=== PATIENT | female | born 1980 | race Two or more races ===

== ENCOUNTER 2016-06-11 08:57 | Day surgery (SDC) | payer MEDICAID ==
[2016-06-11] MEDS ORDERED: LR 1,000 ML IV ONE (10:54)
[2016-06-11] MEDS ORDERED: MIDAZOLAM 2 MG/2 ML VIAL ONE (11:40)
[2016-06-11] MEDS ORDERED: fentaNYL 100 MCG/2 ML INJ ONE (11:44)
[2016-06-11] MEDS ORDERED: KETAMINE 100 MG/10 ML SYR IVP ONE (11:44)
[2016-06-11] MEDS ORDERED: PROPOFOL 200 MG/20 ML VIAL ONE (11:59)
--- NOTE | 2016-06-11 12:18 | GPN ---
[f rep st] PROCEDURE NOTE DATE OF PROCEDURE: 06/11/2016 PROCEDURE PERFORMED: Esophagogastroduodenoscopy with biopsy. INDICATION: The patient is a 35-year-old female who presents with complaints of odynophagia as well as chest pain. She presents for further evaluation. CONSENT: Risks, benefits, and alternatives of the procedure were discussed in great detail with the patient. Risks of infection, bleeding, perforation, and sedation were discussed. All questions answered and informed consent obtained. MEDICATIONS: Propofol. Please see anesthesiology records for details. ESTIMATED BLOOD LOSS: Insignificant. ESOPHAGOGASTRODUODENOSCOPY EXAMINATION: The Olympus upper endoscope was introduced in the mouth and advanced to the esophagus. In the whole examined esophagus, there was a ringed appearance with linear furrows suggestive of eosinophilic esophagitis. Multiple biopsies were taken in the mid esophagus. The stomach was entered and closely examined, including retroflexed views of the angularis, cardia, and fundus. The patient was noted to have a small hiatal hernia. The mucosa in the antrum and body was erythematous in a patchy distribution and biopsies were taken. The duodenal bulb and second portion of the duodenum were normal in appearance. IMPRESSION: 1. Ringed appearance of esophagus with linear furrows consistent with eosinophilic esophagitis. Biopsies taken. 2. Gastritis, status post biopsy. 3. Small hiatal hernia. RECOMMENDATIONS: 1. Follow up on biopsy results. 2. Recommend PPI therapy twice a day. 3. If biopsy is positive, we will start a trial of Flovent swallowed. 4. Continue previous medications. 5. Advance diet. /[id number]/MODL MTDD
== END 2016-06-11 13:20 | disposition home or self-care (01) ==
LOC: FSGY 08:57
PROVIDERS: ATTEND Internal Medicine Gastroenterology
PROC: 0DB28ZX Excision of Middle Esophagus, Via Natural or Artificial Opening Endoscopic, Diagnostic (ICD-10-PCS; principal; 2016-06-11 11:15)
PROC: 0DB68ZX Excision of Stomach, Via Natural or Artificial Opening Endoscopic, Diagnostic (ICD-10-PCS; principal; 2016-06-11 11:15)
DX: K20.0 Eosinophilic esophagitis (principal); K29.60 Other gastritis without bleeding; K44.9 Diaphragmatic hernia without obstruction or gangrene
CPT/HCPCS: J2250; J2704; J3010